=== PATIENT | female | born 1985 | race Two or more races ===

== ENCOUNTER 2025-03-23 18:26 | Emergency (ER) | payer OTHER ==
[~2025-03-23] VITALS: Ht 154.9 cm; Wt 59.0 kg
[~2025-03-23 18:26] MED LIST: PROTONIX40 MG PO
[2025-03-23] MEDS ORDERED: LEVOTHYROXINE25 MCG (18:30)
[2025-03-23] MEDS ORDERED: GABAPENTIN 400 MG CAPSULE PO STA (19:22)
[2025-03-23] MEDS ORDERED: ORPHENADRINE CITRATE 30 MG/ML AMPUL IM STA (19:22)
[2025-03-23] MEDS ORDERED: ORPHENADRINE CITRATE 30 MG/ML AMPUL ONE (19:27)
[2025-03-23 19:46] LABS: BASO % 0.8 % (0.1-1.2); EOS # 0.31 (0.04-0.54); HEMATOCRIT 30.7 % (34.1-44.9); HEMOGLOBIN 10.4 g/dL (11.2-15.7); LYMPH # 2.43 (1.18-3.74); LYMPH % 39.1 % (19.3-53.1); MEAN CORPUSCULAR HEMOGLOBIN 28.5 pg (25.6-32.2); MONO # 0.38 (0.24-0.82); MONO % 6.1 % (4.7-12.5); NEUT # 3.01 (1.56-6.13); NEUT % 48.5 % (34.0-71.1); PLATELET COUNT 275 K/uL (163-369); RED BLOOD COUNT 3.65 M/uL (3.93-5.22); RED CELL DISTRIBUTION WIDTH 13.7 % (11.6-14.4)
[2025-03-23 20:17] LABS: CALCIUM 8.5 mg/dL (8.5-10.1); CREATININE SERUM 0.62 mg/dL (0.55-1.02); GFR 107.73; POTASSIUM 3.48 mEq/L (3.5-5.1)
[2025-03-23] MEDS ORDERED: CARBAMAZEPINE 200 MG TABLET PO STA (20:27)
[2025-03-23] MEDS ORDERED: KETOROLAC TROMETHAMINE 30 MG VIAL IM STA (21:41)
[2025-03-23] MEDS ORDERED: TRAMADOL HCL 50 MG TABLET PO STA (21:41)
[2025-03-23] MEDS ORDERED: KETOROLAC TROMETHAMINE 30 MG VIAL ONE (21:43)
== END 2025-03-23 21:57 | disposition home or self-care (01) ==
LOC: ER 18:42
PROVIDERS: General Practice
DX: G50.0 Trigeminal neuralgia (principal)